=== PATIENT | female | born 1985 | race American Indian/Alaskan Native ===

== ENCOUNTER 2016-12-26 23:22 | Emergency (ER) | payer OTHER ==
[2016-12-26 23:25] VITALS: BMI 32.3
[2016-12-26 23:33] VITALS: RESP 18; TEMP 97.7
[2016-12-26] MEDS ORDERED: DiphenhydrAMINE 50 mg/ml Inj IVP STA (23:35)
--- NOTE | 2016-12-27 01:42 | ED PDOC ---
Arrival/HPI - General Historian: Patient - History of Present Illness Time/Duration: 1 hour Symptom Onset: Sudden Symptom Course: Improving Quality: Unable to Describe Severity Level: 1 Activities at Onset: Rest - General Chief Complaint: Shortness Of Breath Time Seen by Provider: 12/26/16 23:28 - History of Present Illness Narrative History of Present Illness (Text): 12/27/16 01:49 31-year-old female presents today with a feeling of shortness of breath that started about one hour prior to arrival. Patient states she just started a new blood pressure medication today around 5 PM and suddenly started to develop difficulty breathing. Patient states she doesn't feel short of breath she just feels like it's harder to breathe than usual. She denies wheezing. Denies chest pain. No vomiting or diarrhea. Denies headache dizziness or weakness. Patient denies rash. She denies new soaps lotions or detergents or perfumes. patient states the only thing new is the losartan. Patient states even now at the hospital she is already feeling better. She states she has a history of anxiety but denies any recent stressors. The patient denies recent travel. She denies smoking history. She denies calf tenderness. She denies control usage. ( Fanny Ghosh) Past Medical History - Provider Review Nursing Documentation Reviewed: Yes - Travel History Have you recently traveled outside [place] w/in the past 3 mons?: No - Cardiac Hx Hypertension: Yes - Psychiatric Hx Substance Use: No Family/Social History - Physician Review Nursing Documentation Reviewed: Yes Family/Social History: Unknown Family HX Smoking Status: no Hx Alcohol Use: No Hx Substance Use: No Allergies/Home Meds Allergies/Adverse Reactions: Allergies No Known Allergies Allergy (Verified 12/26/16 23:25) Home Medications: Home Meds Medication Instructions Recorded Confirmed Losartan [Cozaar] 25 mg PO DAILY 12/26/16 12/26/16 Review of Systems - Review of Systems Constitutional: absent: Fatigue, Fevers Respiratory: SOB. absent: Cough, Sputum, Wheezing Cardiovascular: absent: Chest Pain, Palpitations Gastrointestinal: absent: Abdominal Pain, Nausea, Vomiting Genitourinary Female: absent: Dysuria, Frequency, Hematuria Musculoskeletal: absent: Arthralgias, Back Pain, Neck Pain Skin: absent: Rash, Pruritis Neurological: absent: Headache, Dizziness Physical Exam Vital Signs Reviewed: Yes Temperature: Afebrile Blood Pressure: Normal Pulse: Regular Respiratory Rate: Normal Appearance: Positive for: Well-Appearing, Non-Toxic, Comfortable Pain Distress: None Mental Status: Positive for: Alert and Oriented X 3 - Systems Exam Head: Present: Atraumatic Mouth: Present: Moist Mucous Membranes Pharnyx: Present: Normal. No: ERYTHEMA, EXUDATE Nose (Internal): Present: Normal Inspection Neck: Present: Normal Range of Motion Respiratory/Chest: Present: Clear to Auscultation, Good Air Exchange. No: Respiratory Distress, Accessory Muscle Use, Wheezes, Decreased Breath Sounds, Retracting, Rhonchi, Tachypneic Cardiovascular: Present: Regular Rate and Rhythm, Normal S1, S2. No: Murmurs Abdomen: No: Tenderness Lower Extremity: No: Edema, CALF TENDERNESS Skin: Present: Warm, Dry, Normal Color. No: Rashes Psychiatric: Present: Alert, Oriented x 3 Medical Decision Making ED Course and Treatment: 12/27/16 01:53 Patient is nontoxic well-appearing in no distress with stable vital signs no angioedema. Lungs are clear to auscultation bilaterally there is no wheezing noted. The airway is patent Benadryl 50 mg IV Solu-Medrol 125 mg IV Pepcid 20 mg IV EKG shows normal sinus rhythm with sinus arrhythmia at 86 bpm normal axis normal intervals no ST elevations Patient feeling better even prior to medications. Patient reassessment: After medications patient is feeling much better. Patient states symptoms have completely resolved. the lungs are clear to auscultation bilaterally the airway is patent the patient is speaking in full sentences. I advised taking Benadryl every 6 hours as needed for itch as well as prednisone daily x4 days. Advised patient to follow up with primary care physician within the next 2 days and return if symptoms worsen persist or if new symptoms develop. I have advised the patient to stop taking the losartan at this point. I stressed the importance of follow-up with a primary care physician as the patient will still need to take a blood pressure medication. Patient verbalizes understanding of discharge instructions and need for immediate followup. all aspects of this case were discussed the attending of record. Impression :Allergic reaction Benadryl every 6 hours as needed for itch Prednisone once daily x4 days Pepcid one tablet daily Follow up with the primary care physician tomorrow Discontinue the use of your losartan Return if symptoms worsen persist or if new symptoms develop: Shortness of breath, feeling of throat closing, difficulty speaking or any other concerning symptoms develop (Fanny Ghosh) - Medication Orders Current Medication Orders: Discontinued Medications Diphenhydramine HCl (Benadryl) 50 mg IVP STAT STA Stop: 12/26/16 23:36 Last Admin: 12/27/16 00:51 Dose: 50 mg Famotidine (Pepcid) 20 mg IVP STAT STA Stop: 12/26/16 23:36 Last Admin: 12/27/16 00:51 Dose: 20 mg Methylprednisolone (Solu-Medrol) 125 mg IVP STAT STA Stop: 12/26/16 23:36 Last Admin: 12/27/16 00:51 Dose: 125 mg Disposition/Present on Arrival - Present on Arrival Any Indicators Present on Arrival: No History of DVT/PE: No History of Uncontrolled Diabetes: No Urinary Catheter: No History of Decub. Ulcer: No History Surgical Site Infection Following: None - Disposition Have Diagnosis and Disposition been Completed?: Yes Disposition Time: :44 Patient Plan: Discharge - Disposition Diagnosis: Allergic reaction Disposition: HOME/ ROUTINE Condition: GOOD Discharge Instructions (ExitCare): General Allergic Reaction (ED) Additional Instructions: Benadryl every 6 hours as needed for itch Prednisone once daily x4 days Pepcid one tablet daily Follow up with the primary care physician tomorrow Discontinue the use of your new blood pressure medication due to the possibility of allergic reaction to this medication. Return if symptoms worsen persist or if new symptoms develop: Shortness of breath, feeling of throat closing, difficulty speaking or any other concerning symptoms develop Prescriptions: DiphenhydrAMINE [Benadryl] 25 mg PO Q6H #20 cap Famotidine [Pepcid] 20 mg PO DAILY #30 tab predniSONE [predniSONE Tab] 3 tab PO DAILY #12 tab Referrals: Jacobo Venegas MD [Staff Provider] - Follow up with primary Sly Tillman MD [Staff Provider] - Follow up with primary Forms: WORK NOTE
[2016-12-27 01:49] VITALS: BP 124/74; PULSE 89; O2SAT 98
--- NOTE | 2016-12-27 11:18 | CARD ---
APPROVED REPORT EKG Measurement Heart [id number] <Conclusion> Normal sinus rhythm with sinus arrhythmia Normal ECG
== END 2016-12-27 01:48 | disposition home or self-care (01) ==
LOC: ED 23:22
DX: T78.49XA Other allergy, initial encounter (principal); X58.XXXA Exposure to other specified factors, initial encounter; I10 Essential (primary) hypertension
CPT/HCPCS: 93005; 96374; 96375; 99283; J1200; J2930

== ENCOUNTER 2017-02-09 03:04 | Emergency (ER) | payer OTHER ==
[2017-02-09 03:23] VITALS: BMI 35.7
[2017-02-09 03:25] VITALS: TEMP 99.4; O2SAT 100
--- NOTE | 2017-02-09 03:41 | ED PDOC ---
Arrival/HPI - General Chief Complaint: Chest Pain Time Seen by Provider: 02/09/17 03:27 Historian: Patient - History of Present Illness Narrative History of Present Illness (Text): 02/09/17 03:40 Nikki Mendiola is a 31 year old female, whose past medical history includes hypertension, who presents to the Emergency department complaining of chest pain. Patient states she has been experiencing left-sided chest discomfort described as a burning/gassy sensation since yesterday after drinking coffee. Patient states she was seen at an Urgent Care yesterday for similar complaint and given Omeprazole for acid reflux. Patient denies any fever , chills, shortness of breath, nausea, vomiting, diarrhea, urinary symptoms, back pain, neck pain, headache, dizziness, or any other complaints. Time/Duration: Other (yesterday) Symptom Onset: Gradual Symptom Course: Unchanged Activities at Onset: Rest, Light Context: Home Past Medical History - Provider Review Nursing Documentation Reviewed: Yes - Infectious Disease Hx of Infectious Diseases: None - Cardiac Hx Hypertension: Yes - Psychiatric Hx Substance Use: No - Anesthesia Hx Anesthesia: No Family/Social History - Physician Review Nursing Documentation Reviewed: Yes Family/Social History: No Known Family HX Smoking Status: Never Smoked Hx Alcohol Use: No Hx Substance Use: No Allergies/Home Meds Allergies/Adverse Reactions: Allergies No Known Allergies Allergy (Verified 12/26/16 23:25) Home Medications: Home Meds Medication Instructions Recorded Confirmed Losartan [Cozaar] 25 mg PO DAILY 12/26/16 12/26/16 Review of Systems - Physician Review All systems were reviewed & negative as marked: Yes - Review of Systems Constitutional: Normal. absent: Fevers Eyes: Normal ENT: Normal Respiratory: Normal. absent: SOB, Cough Cardiovascular: Chest Pain Gastrointestinal: Normal. absent: Abdominal Pain, Diarrhea, Nausea, Vomiting Genitourinary Female: Normal. absent: Dysuria, Frequency, Hematuria, Urine Output Changes Musculoskeletal: Normal. absent: Back Pain, Neck Pain Skin: Normal. absent: Rash Neurological: Normal. absent: Headache, Dizziness Endocrine: Normal Hemo/Lymphatic: Normal Psychiatric: Normal Physical Exam Vital Signs Reviewed: Yes Vital Signs Temp Pulse Resp BP Pulse Ox 02/09/17 03:25 99.4 F 96 H 18 153/80 H 100 Temperature: Afebrile Blood Pressure: Normal Pulse: Regular Respiratory Rate: Normal Appearance: Positive for: Well-Appearing, Non-Toxic, Comfortable Pain Distress: None Mental Status: Positive for: Alert and Oriented X 3 - Systems Exam Head: Present: Atraumatic, Normocephalic Pupils: Present: PERRL Extroacular Muscles: Present: EOMI Conjunctiva: Present: Normal Mouth: Present: Moist Mucous Membranes Neck: Present: Normal Range of Motion Respiratory/Chest: Present: Clear to Auscultation, Good Air Exchange. No: Respiratory Distress, Accessory Muscle Use Cardiovascular: Present: Regular Rate and Rhythm, Normal S1, S2. No: Murmurs Abdomen: Present: Normal Bowel Sounds. No: Tenderness, Distention, Peritoneal Signs Back: Present: Normal Inspection Upper Extremity: Present: Normal Inspection. No: Cyanosis, Edema Lower Extremity: Present: Normal Inspection. No: Edema Neurological: Present: GCS=15, CN II-XII Intact, Speech Normal Skin: Present: Warm, Dry, Normal Color. No: Rashes Psychiatric: Present: Alert, Oriented x 3, Normal Insight, Normal Concentration Medical Decision Making ED Course and Treatment: 02/09/17 03:41 Impression: 31 year old female complaining of burning left-sided chest discomfort. Differential Diagnosis include but are not limited to: Plan: -- EKG -- Labs, cardiac enzymes -- Urinalysis -- Carafate -- Protonix -- Reassess and disposition Progress Notes: Reviewed EKG, NSR at [address]-segment elevations or depressions, no T- wave inversions, normal intervals. Re-evaluation Time: 06:03 Reassessment Condition: Re-examined, Improved - Lab Interpretations Lab Results: 02/09/17 03:30 02/09/17 03:30 Lab Results 02/09/17 03:39: Urine Color Yellow, Urine Appearance Sl cloudy, Urine pH 6.0, Ur Specific [place] 1.010, Urine Protein Trace H, Urine Glucose (UA) Negative, Urine Ketones Negative, Urine Blood Large H, Urine Nitrate Negative, Urine Bilirubin Negative, Urine Urobilinogen 0.2, Ur Leukocyte Esterase Negative, Urine RBC 1 - 3, Urine WBC 1 - 3, Ur Epithelial Cells 3 - 4, Amorphous Sediment Small, Urine Bacteria Small, Urine HCG, Qual Negative 02/09/17 03:30: Sodium 135, Potassium 3.3 L, Chloride 100, Carbon Dioxide 26, Anion Gap 12, BUN 5 L, Creatinine 0.7, Est GFR ( Amer) > 60, Est GFR (Non -Af Amer) > 60, Random Glucose 106, Calcium 9.7, Magnesium 1.8, Total Bilirubin 0.6, AST 14 L, ALT 28, Alkaline Phosphatase 51, Lactate Dehydrogenase 356, Total Creatine Kinase 63, Troponin I < 0.01, Total Protein 7.6, Albumin 4.1, Globulin 3.4, Albumin/Globulin Ratio 1.2 02/09/17 03:30: WBC 4.7, RBC 4.31, Hgb 12.3, Hct 37.4, MCV 86.8, MCH 28.5, MCHC 32.9, RDW 13.3, Plt Count 208, MPV 12.3 H, Gran % 47.7 L, Lymph % (Auto) 40.8 H , [place] % (Auto) 10.0 H, Eos % (Auto) 1.5, Baso % (Auto) 0.0, Gran # 2.23, Lymph # 1.9, [place] # 0.5, Eos # 0.1, Baso # 0.00 I have reviewed the lab results: Yes - EKG Interpretation Interpreted by ED Physician: Yes Type: 12 lead EKG - Medication Orders Current Medication Orders: Discontinued Medications Ketorolac Tromethamine (Toradol) 30 mg IVP ONCE ONE Stop: 02/09/17 05:14 Last Admin: 02/09/17 05:24 Dose: 30 mg Pantoprazole Sodium (Protonix Inj) 40 mg IVP ONCE STA Stop: 02/09/17 03:45 Last Admin: 02/09/17 04:02 Dose: 40 mg Sucralfate (Carafate Oral Susp) 1 gm PO STAT STA Stop: 02/09/17 03:45 Last Admin: 02/09/17 04:02 Dose: 1 gm - Scribe Statement The provider has reviewed the documentation as recorded by the Goldyibleida Chavira All medical record entries made by the Goldyibleida were at my direction and personally dictated by me. I have reviewed the chart and agree that the record accurately reflects my personal performance of the history, physical exam, medical decision making, and the department course for this patient. I have also personally directed, reviewed, and agree with the discharge instructions and disposition. Disposition/Present on Arrival - Present on Arrival Any Indicators Present on Arrival: No History of DVT/PE: No History of Uncontrolled Diabetes: No Urinary Catheter: No History of Decub. Ulcer: No History Surgical Site Infection Following: None - Disposition Have Diagnosis and Disposition been Completed?: Yes Diagnosis: Gastro-esophageal reflux Disposition: HOME/ ROUTINE Disposition Time: 06:04 Condition: GOOD Discharge Instructions (ExitCare): Gastroesophageal Reflux Disease (ED) Prescriptions: Sucralfate [Carafate] 1 gm PO QID #24 tab
[2017-02-09] MEDS ORDERED: Sucralfate 1 gm/10 ml Oral Susp UD PO STA (03:44)
[2017-02-09 03:49] LABS: ADD MANUAL DIFF? NO
[2017-02-09 03:59] LABS: EOS # 0.1 (0.0-0.7); EOS % 1.5 % (1.5-5.0); GRAN # 2.23 (1.4-6.5); GRAN % 47.7 % (50.0-68.0); HEMATOCRIT 37.4 % (36.0-48.0); LYMPH # 1.9 (1.2-3.4); LYMPH % 40.8 % (22.0-35.0); MEAN CELL VOLUME 86.8 fL (80.0-105.0); MEAN CORPUSCULAR HEMOGLOBIN 28.5 pg (25.0-35.0); MEAN CORPUSCULAR HGB CONC 32.9 g/dl (31.0-37.0); MEAN PLATELET VOLUME 12.3 fl (7.0-11.0); MONO # 0.5 (0.1-0.6); PLATELET COUNT 208 10^3/uL (120.0-450.0); RED CELL DISTRIBUTION WIDTH 13.3 % (11.5-14.5); WHITE BLOOD COUNT 4.7 10^3/ul (4.5-11.0)
[2017-02-09 04:01] LABS: URINE BILIRUBIN NEGATIVE (NEGATIVE); URINE BLOOD LARGE (NEGATIVE); URINE GLUCOSE (UA) NEGATIVE (NEGATIVE); URINE KETONE NEGATIVE (NEGATIVE); URINE LEUKOCYTE ESTERASE NEGATIVE Leu/uL (NEGATIVE); URINE PROTEIN TRACE mg/dL (<30 mg/dL); URINE UROBILINOGEN 0.2 E.U./dL (<1 E.U./dL)
[2017-02-09 04:02] LABS: URINE APPEARANCE SL CLOUDY (CLEAR); URINE COLOR YELLOW (YELLOW)
[2017-02-09 04:14] LABS: ALB/GLOB RATIO 1.2 (1.1-1.8); ALKALINE PHOSPHATASE 51 U/L (38-133); ALT/SGPT 28 U/L (7-56); AST/SGOT 14 U/L (15-39); BILIRUBIN,TOTAL 0.6 mg/dL (0.2-1.3); BLOOD UREA NITROGEN 5 mg/dL (7-21); CALCIUM 9.7 mg/dL (8.4-10.5); CARBON DIOXIDE 26 mmol/L (21-33); CHLORIDE 100 mmol/L (98-107); GFR AFRICAN-AMERICAN > 60; GLUCOSE,RANDOM 106 mg/dL (70-110); MAGNESIUM 1.8 mg/dL (1.7-2.2); POTASSIUM 3.3 mmol/L (3.6-5.0); SODIUM 135 mmol/L (132-148); TOTAL PROTEIN 7.6 g/dL (5.8-8.3)
[2017-02-09 04:37] LABS: URINE AMORPHOUS SEDIMENT SMALL; URINE BACTERIA SMALL (NEG)
[2017-02-09 04:54] LABS: TROPONIN I < 0.01 ng/mL
[2017-02-09 06:20] VITALS: BP 145/57; PULSE 68; RESP 16
--- NOTE | 2017-02-09 10:52 | CARD ---
APPROVED REPORT EKG Measurement Heart [id number] <Conclusion> Normal sinus rhythm NSSTW changes Prolonged QTc No change
== END 2017-02-09 06:21 | disposition home or self-care (01) ==
LOC: ED 03:04
DX: K21.9 Gastro-esophageal reflux disease without esophagitis (principal); I10 Essential (primary) hypertension
CPT/HCPCS: 80053; 81001; 82550; 83615; 83735; 84484; 84703; 85025; 93005; 96374; 96375; 99285; C9113; J1885

== ENCOUNTER 2017-02-14 00:42 | Emergency (ER) | payer OTHER ==
[2017-02-14 00:43] VITALS: BMI 35.7
--- NOTE | 2017-02-14 00:50 | ED PDOC ---
Arrival/HPI - History of Present Illness Time/Duration: 1/2 hour Symptom Onset: Sudden Symptom Course: Unchanged Severity Level: Mild Activities at Onset: Light Context: Home <Stuart Jansen - Last Filed: 02/14/17 02:24> - General Historian: Patient <Ricky Norwood - Last Filed: 02/14/17 02:39> - General Chief Complaint: Shortness Of Breath Time Seen by Provider: 02/14/17 00:44 - History of Present Illness Narrative History of Present Illness (Text): 02/14/17 00:48 This is a 31 yo F with PMH of HTN that presents with SOB that she states started 30 min prior to arrival. She states that she has a substernal tightness that is similar to her last ER visit where she was treated for her acid reflux. She was lying down in bed when her symptoms began. She denies any cough, post- nasal drip, chest pain, palpitations, nausea, vomiting. Does admit to some head fullness as well. (Ricky Norwood) Past Medical History - Provider Review Nursing Documentation Reviewed: Yes - Infectious Disease Hx of Infectious Diseases: None - Cardiac Hx Hypertension: Yes - Psychiatric Hx Substance Use: No - Anesthesia Hx Anesthesia: No <CucoShanaRicky - Last Filed: 02/14/17 02:39> Family/Social History - Physician Review Nursing Documentation Reviewed: Yes Family/Social History: No Known Family HX Smoking Status: Never Smoked Hx Alcohol Use: No Hx Substance Use: No <CucoShanaRicky - Last Filed: 02/14/17 02:39> Allergies/Home Meds <Stuart Jansen - Last Filed: 02/14/17 02:24> <Ricky Norwood - Last Filed: 02/14/17 02:39> Allergies/Adverse Reactions: Allergies No Known Allergies Allergy (Verified 12/26/16 23:25) Home Medications: Home Meds Medication Instructions Recorded Confirmed No Known Home Med 02/14/17 02/14/17 Review of Systems - Physician Review All systems were reviewed & negative as marked: Yes - Review of Systems Constitutional: Normal. absent: Fatigue, Fevers Eyes: Normal. absent: Vision Changes, Eye Pain ENT: Normal Respiratory: SOB. absent: Cough Cardiovascular: Normal. absent: Chest Pain, Palpitations Gastrointestinal: Normal. absent: Abdominal Pain, Nausea, Vomiting Genitourinary Female: Normal. absent: Dysuria, Frequency Musculoskeletal: Normal Skin: Normal. absent: Rash, Pruritis Neurological: Normal. absent: Headache, Dizziness Endocrine: Normal Hemo/Lymphatic: Normal Psychiatric: Normal <Ricky Norwood - Last Filed: 02/14/17 02:39> Physical Exam Vital Signs Reviewed: Yes Temperature: Afebrile Blood Pressure: Normal Pulse: Regular Respiratory Rate: Normal Appearance: Positive for: Well-Appearing, Non-Toxic, Comfortable Pain Distress: None Mental Status: Positive for: Alert and Oriented X 3 - Systems Exam Head: Present: Atraumatic, Normocephalic Pupils: Present: PERRL Mouth: Present: Moist Mucous Membranes Respiratory/Chest: Present: Clear to Auscultation, Good Air Exchange. No: Respiratory Distress, Accessory Muscle Use, Wheezes, Rhonchi Cardiovascular: Present: Regular Rate and Rhythm, Normal S1, S2 Abdomen: Present: Normal Bowel Sounds. No: Tenderness, Distention Upper Extremity: Present: NORMAL PULSES, Neurovascularly Intact Lower Extremity: Present: NORMAL PULSES, Neurovascularly Intact Neurological: Present: Speech Normal, Motor Func Grossly Intact Skin: Present: Warm, Dry Psychiatric: Present: Alert, Oriented x 3 <Ricky Norwood - Last Filed: 02/14/17 02:39> Vital Signs Temp Pulse Resp BP Pulse Ox 02/14/17 01:22 18 98 02/14/17 00:46 98.1 F 63 19 144/76 100 Medical Decision Making <Stuart Jansen - Last Filed: 02/14/17 02:24> <Ricky Norwood - Last Filed: 02/14/17 02:39> ED Course and Treatment: 02/14/17 02:25 Patient seen and evaluated with resident. Agree with HPI, clinical findings, plan and treatment. Patient is a 31 Year old female who presents to the Emergency department complaining of 30 minute duration of SOB. Also complains of substernal chest tightness. (Stuart Jansen) 02/14/17 00:49 This is a 31 yo F who complains of sob, speaking in full sentences, in no respiratory distress Plan: - Labs including d dimer - EKG, CXR - Protonix - Reassess and disposition 02/14/17 01:51 EKG - NSR at 64 bpm, no st changes, normal intervals, normal axis CXR - no obvious infiltrates or pleural effusions. No cardiomegaly 02/14/17 02:01 K at 2.9, likely due to HCTZ use, will replete 02/14/17 02:35 Pt states she feels improved with the protonix. Will discharge home with instructions to keep her appointment with PMD next week. (Ricky Norwood) - Lab Interpretations Lab Results: 02/14/17 01:15 02/14/17 01:15 Lab Results 02/14/17 01:15: Sodium 137, Potassium 2.9 L*, Chloride 101, Carbon Dioxide 27, Anion Gap 12, BUN 3 L, Creatinine 0.7, Est GFR ( Amer) > 60, Est GFR (Non -Af Amer) > 60, Random Glucose 100, Calcium 9.2, Total Bilirubin 0.5, AST 18, ALT 28, Alkaline Phosphatase 51, Lactate Dehydrogenase 358, Total Creatine Kinase 347 H, CK-MB (CK-2) < 0.2, CK-MB (CK-2) % Cancelled, Troponin I < 0.01, Total Protein 7.7, Albumin 4.0, Globulin 3.7, Albumin/Globulin Ratio 1.1 02/14/17 01:15: D-Dimer, Quantitative 0.21 02/14/17 01:15: WBC 3.7 L D, RBC 4.23, Hgb 12.2, Hct 37.0, MCV 87.5, MCH 28.8, MCHC 33.0, RDW 13.4, Plt Count 214, MPV 12.1 H, Gran % 44.7 L, Lymph % (Auto) 44.7 H, [place] % (Auto) 8.7 H, Eos % (Auto) 1.6, Baso % (Auto) 0.3, Gran # 1.64, Lymph # 1.6, [place] # 0.3, Eos # 0.1, Baso # 0.01 - RAD Interpretation Radiology Orders: 02/14/17 00:58 CHEST PORTABLE [RAD] Stat - Medication Orders Current Medication Orders: Discontinued Medications Pantoprazole Sodium (Protonix Inj) 40 mg IVP STAT STA Stop: 02/14/17 00:59 Last Admin: 02/14/17 01:25 Dose: 40 mg Potassium Chloride (K-Dur 20 Meq Er Tab) 40 meq PO STAT STA Stop: 02/14/17 02:01 - PA / MANAGER GROCERY / Resident Statement MD/ has reviewed & agrees with the documentation as recorded. MD/ has examined the patient and agrees with the treatment plan. <Stuart Jansen - Last Filed: 02/14/17 02:24> <Ricky Norwood - Last Filed: 02/14/17 02:39> - Scribe Statement Jing Segal Provider Scribe Attestation: All medical record entries made by the Scribe were at my direction and personally dictated by me. I have reviewed the chart and agree that the record accurately reflects my personal performance of the history, physical exam, medical decision making, and the department course for this patient. I have also personally directed, reviewed, and agree with the discharge instructions and disposition. (Stuart Jansen) Disposition/Present on Arrival <InderjitStuart - Last Filed: 02/14/17 02:24> - Present on Arrival Any Indicators Present on Arrival: No History of DVT/PE: No History of Uncontrolled Diabetes: No Urinary Catheter: No History Surgical Site Infection Following: None - Disposition Have Diagnosis and Disposition been Completed?: Yes Disposition Time: 02:37 Patient Plan: Discharge <CucoShanaRicky - Last Filed: 02/14/17 02:39> - Disposition Diagnosis: Hypokalemia, Shortness of breath Disposition: HOME/ ROUTINE Condition: IMPROVED Discharge Instructions (ExitCare): Gastroesophageal Reflux Disease (ED) Additional Instructions: You were evaluated for shortness of breath. Continue to take home medications as prescribed. Follow up/keep appointment with primary care doctor. Please return to ED with any new or worsening symptoms. Referrals: Janey Salcedo, [Primary Care Provider] - Follow up with primary
[2017-02-14 00:54] VITALS: TEMP 98.1
[2017-02-14 01:25] VITALS: RESP 18
[2017-02-14 01:28] LABS: ADD MANUAL DIFF? NO
[2017-02-14 01:33] LABS: BASO # 0.01 K/mm3 (0.0-2.0); BASO % 0.3 % (0.0-3.0); EOS # 0.1 (0.0-0.7); EOS % 1.6 % (1.5-5.0); GRAN # 1.64 (1.4-6.5); GRAN % 44.7 % (50.0-68.0); LYMPH # 1.6 (1.2-3.4); LYMPH % 44.7 % (22.0-35.0); MEAN CELL VOLUME 87.5 fL (80.0-105.0); MEAN CORPUSCULAR HEMOGLOBIN 28.8 pg (25.0-35.0); MEAN PLATELET VOLUME 12.1 fl (7.0-11.0); MONO # 0.3 (0.1-0.6); MONO % 8.7 % (1.0-6.0); PLATELET COUNT 214 10^3/uL (120.0-450.0); RED CELL DISTRIBUTION WIDTH 13.4 % (11.5-14.5); WHITE BLOOD COUNT 3.7 10^3/ul (4.5-11.0)
[2017-02-14 01:54] LABS: ALB/GLOB RATIO 1.1 (1.1-1.8); ALKALINE PHOSPHATASE 51 U/L (38-133); ALT/SGPT 28 U/L (7-56); AST/SGOT 18 U/L (15-39); BILIRUBIN,TOTAL 0.5 mg/dL (0.2-1.3); BLOOD UREA NITROGEN 3 mg/dL (7-21); CALCIUM 9.2 mg/dL (8.4-10.5); CARBON DIOXIDE 27 mmol/L (21-33); CHLORIDE 101 mmol/L (98-107); GFR AFRICAN-AMERICAN > 60; GLUCOSE,RANDOM 100 mg/dL (70-110); SODIUM 137 mmol/L (132-148); TOTAL PROTEIN 7.7 g/dL (5.8-8.3)
[2017-02-14 01:58] LABS: POTASSIUM 2.9 mmol/L (3.6-5.0)
[2017-02-14] MEDS ORDERED: Potassium Chloride 20 mEq ER Tab PO STA (02:00)
[2017-02-14 02:07] LABS: TROPONIN I < 0.01 ng/mL
[2017-02-14 02:50] VITALS: BP 129/67; PULSE 62; O2SAT 100
--- NOTE | 2017-02-14 08:43 | RAD ---
HISTORY: sob COMPARISON: No prior. FINDINGS: LUNGS: No active pulmonary disease. PLEURA: No significant pleural effusion identified, no pneumothorax apparent. CARDIOVASCULAR: Normal. OSSEOUS STRUCTURES: No significant abnormalities. VISUALIZED UPPER ABDOMEN: Normal. OTHER FINDINGS: None. IMPRESSION: No active disease.
--- NOTE | 2017-02-14 22:37 | CARD ---
APPROVED REPORT EKG Measurement Heart [id number] <Conclusion> Normal sinus rhythm with sinus arrhythmia Normal ECG
== END 2017-02-14 02:51 | disposition home or self-care (01) ==
LOC: ED 00:42
DX: R06.02 Shortness of breath (principal); E87.6 Hypokalemia; I10 Essential (primary) hypertension
CPT/HCPCS: 71010; 80053; 82550; 82553; 83615; 84484; 85025; 85378; 93005; 96374; 99284; C9113

== ENCOUNTER 2017-02-18 02:12 | Emergency (ER) | payer OTHER ==
[2017-02-18 02:17] VITALS: BMI 34.6
[2017-02-18 02:19] VITALS: BP 133/79; PULSE 79; RESP 15; TEMP 98.2; O2SAT 100
[2017-02-18] MEDS ORDERED: Alum-Mag Hydrox-Simethicone Susp (30 mL) PO STA (03:20)
--- NOTE | 2017-02-18 03:57 | ED PDOC ---
Arrival/HPI - General Chief Complaint: Abdominal Pain Time Seen by Provider: 02/18/17 03:10 Historian: Patient - History of Present Illness Narrative History of Present Illness (Text): 02/18/17 04:57 A 31 year old female presents to the emergency department complaining of chest pain that developed earlier today. Patient notes a burning sensation of food getting stuck after eating solid foods. 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 Patient has been to the emergency department 2 times in the past month for the same symptoms. Denies any other complaints at this time. Symptom Onset: Sudden Symptom Course: Unchanged Activities at Onset: Rest Modifying Factors (Text): none Context: Home Past Medical History - Provider Review Nursing Documentation Reviewed: Yes - Infectious Disease Hx of Infectious Diseases: None - Cardiac Hx Hypertension: Yes - Pulmonary Hx Respiratory Disorders: No - Neurological Hx Neurological Disorder: No - HEENT Hx HEENT Disorder: No - Renal Hx Renal Disorder: No - Endocrine/Metabolic Hx Endocrine Disorders: No - Hematological/Oncological Hx Blood Disorders: No - Integumentary Hx Dermatological Disorder: No - Musculoskeletal/Rheumatological Hx Musculoskeletal Disorders: No - Genitourinary/Gynecological Hx Genitourinary Disorders: No - Psychiatric Hx Psychophysiologic Disorder: No Hx Substance Use: No - Anesthesia Hx Anesthesia: No Family/Social History - Physician Review Nursing Documentation Reviewed: Yes Family/Social History: No Known Family HX Smoking Status: Never Smoked Hx Alcohol Use: No Hx Substance Use: No Allergies/Home Meds Allergies/Adverse Reactions: Allergies No Known Allergies Allergy (Verified 02/18/17 02:17) Home Medications: Home Meds Medication Instructions Recorded Confirmed Omeprazole [Omeprazole] 40 mg PO DAILY 02/18/17 02/18/17 Review of Systems - Physician Review All systems were reviewed & negative as marked: Yes - Review of Systems Constitutional: absent: Fevers Respiratory: absent: SOB Cardiovascular: Chest Pain Neurological: absent: Headache Physical Exam Vital Signs Reviewed: Yes Vital Signs Temp Pulse Resp BP Pulse Ox 02/18/17 02:18 98.2 F 79 15 133/79 100 Temperature: Afebrile Blood Pressure: Normal Pulse: Regular Respiratory Rate: Normal Appearance: Positive for: Well-Appearing, Non-Toxic, Comfortable Pain Distress: None Mental Status: Positive for: Alert and Oriented X 3 - Systems Exam Head: Present: Atraumatic, Normocephalic Pupils: Present: PERRL Extroacular Muscles: Present: EOMI Conjunctiva: Present: Normal Mouth: Present: Moist Mucous Membranes Neck: Present: Normal Range of Motion Respiratory/Chest: Present: Clear to Auscultation, Good Air Exchange. No: Respiratory Distress, Accessory Muscle Use Cardiovascular: Present: Regular Rate and Rhythm, Normal S1, S2. No: Murmurs Abdomen: Present: Normal Bowel Sounds. No: Tenderness, Distention, Peritoneal Signs Back: Present: Normal Inspection Upper Extremity: Present: Normal Inspection. No: Cyanosis, Edema Lower Extremity: Present: Normal Inspection. No: Edema Neurological: Present: GCS=15, CN II-XII Intact, Speech Normal Skin: Present: Warm, Dry, Normal Color. No: Rashes Psychiatric: Present: Alert, Oriented x 3, Normal Insight, Normal Concentration Medical Decision Making ED Course and Treatment: 02/18/17 03:57 Patient feels better after treatment. I have discussed the results and plan with the patient, who expresses understanding. Patient in agreement with plan to be discharged home. Patient is stable for discharge. Patient was instructed to follow up with high school social science teacher or return if symptoms worsen or new concerning symptoms arise. - Medication Orders Current Medication Orders: Discontinued Medications Al Hydrox/Mg Hydrox/Simethicone (Maalox Plus 30 Ml) 30 ml PO STAT STA Stop: 02/18/17 03:21 Last Admin: 02/18/17 03:42 Dose: 30 ml Lidocaine HCl (Lidocaine 2% Viscous) 15 ml PO STAT STA Stop: 02/18/17 03:21 Last Admin: 02/18/17 03:43 Dose: 15 ml - Scribe Statement The provider has reviewed the documentation as recorded by the Noris Vale Provider Scribe Attestation: All medical record entries made by the Goldyibleida were at my direction and personally dictated by me. I have reviewed the chart and agree that the record accurately reflects my personal performance of the history, physical exam, medical decision making, and the department course for this patient. I have also personally directed, reviewed, and agree with the discharge instructions and disposition. Disposition/Present on Arrival - Present on Arrival History of DVT/PE: No History of Uncontrolled Diabetes: No Urinary Catheter: No History of Decub. Ulcer: No History Surgical Site Infection Following: None - Disposition Diagnosis: GERD (gastroesophageal reflux disease) Disposition: HOME/ ROUTINE Disposition Time: 03:57 Condition: IMPROVED Discharge Instructions (ExitCare): Diet for Ulcers and Gastritis (ED) Additional Instructions: Please follow up with your doctor. Return to the ER for any worsening symptoms or for any other concerns. Prescriptions: Lidocaine 2% Viscous 15 ml MM Q4H PRN #150 ml PRN Reason: Heartburn
== END 2017-02-18 04:03 | disposition home or self-care (01) ==
LOC: ED 02:12
DX: K21.9 Gastro-esophageal reflux disease without esophagitis (principal); I10 Essential (primary) hypertension

== ENCOUNTER 2017-05-02 13:36 | Emergency (ER) | payer OTHER ==
[2017-05-02 13:46] VITALS: BMI 30.7
[2017-05-02 13:50] VITALS: TEMP 98.8
--- NOTE | 2017-05-02 14:17 | ED PDOC ---
Arrival/HPI - General Chief Complaint: ENT Problem Time Seen by Provider: 05/02/17 13:54 Historian: Patient - History of Present Illness Narrative History of Present Illness (Text): 05/02/17 14:12 32-year-old female presents today with a 2 day history of cough and sore throat. Patient complaining of pain with swallowing. Patient states she did have one episode of vomiting this morning after she drank tea. Patient denies abdominal pain. Denies nausea at present time. Denies fevers or chills. 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 She denies dizziness or weakness. She denies any chest pain or shortness of breath at present time. Patient has not taken any medications for pain at home. No other complaints Time/Duration: Other (2 days) Symptom Onset: Gradual Symptom Course: Worsening Quality: Burning Severity Level: 2 Past Medical History - Provider Review Nursing Documentation Reviewed: Yes - Travel History Have you recently traveled outside [place] w/in the past 3 mons?: No - Infectious Disease Hx of Infectious Diseases: None - Tetanus Immunization Tetanus Immunization: Unknown - Cardiac Hx Cardiac Disorders: No - Pulmonary Hx Respiratory Disorders: No - Neurological Hx Neurological Disorder: No - HEENT Hx HEENT Disorder: No - Renal Hx Renal Disorder: No - Endocrine/Metabolic Hx Endocrine Disorders: No - Hematological/Oncological Hx Blood Disorders: No - Integumentary Hx Dermatological Disorder: No - Musculoskeletal/Rheumatological Hx Musculoskeletal Disorders: No - Genitourinary/Gynecological Hx Genitourinary Disorders: No - Psychiatric Hx Psychophysiologic Disorder: No Hx Substance Use: No - Anesthesia Hx Anesthesia: No Family/Social History - Physician Review Nursing Documentation Reviewed: Yes Family/Social History: Unknown Family HX Smoking Status: Never Smoked Hx Alcohol Use: No Hx Substance Use: No Allergies/Home Meds Allergies/Adverse Reactions: Allergies No Known Allergies Allergy (Verified 02/18/17 02:17) Review of Systems - Review of Systems Constitutional: absent: Fatigue, Fevers ENT: Sore Throat, Sinus Congestion Respiratory: Cough. absent: SOB, Wheezing Cardiovascular: absent: Chest Pain, Palpitations Gastrointestinal: Vomiting. absent: Abdominal Pain, Constipation, Diarrhea, Nausea Genitourinary Female: absent: Dysuria, Frequency, Hematuria Musculoskeletal: absent: Arthralgias, Back Pain, Neck Pain Skin: absent: Rash, Pruritis Neurological: absent: Headache, Dizziness Psychiatric: absent: Anxiety, Depression Physical Exam Vital Signs Reviewed: Yes Vital Signs Temp Pulse Resp BP Pulse Ox 05/02/17 13:50 19 05/02/17 13:49 98.8 F 94 H 18 141/79 99 Temperature: Afebrile Blood Pressure: Normal Pulse: Regular Respiratory Rate: Normal Appearance: Positive for: Well-Appearing, Non-Toxic, Comfortable Pain Distress: None Mental Status: Positive for: Alert and Oriented X 3 - Systems Exam Head: Present: Atraumatic Conjunctiva: Present: Normal Ears: Present: Normal, NORMAL TM Mouth: Present: Moist Mucous Membranes, Normal Lips, Normal Tounge, Normal Teeth. No: Drooling, Trismus Pharnyx: Present: ERYTHEMA, EXUDATE. No: Normal, TONSILS ENLARGED, Peritonsilar Swelling, Uvular Deviation, Muffled/Hoarse Voice, Soft Palate/ Uvular Edema Nose (External): Present: Atraumatic Nose (Internal): Present: Normal Inspection, Clear Mucous Neck: Present: Normal Range of Motion, Trachea Midline. No: Lymphadenopathy Respiratory/Chest: Present: Clear to Auscultation, Good Air Exchange. No: Respiratory Distress, Accessory Muscle Use Cardiovascular: Present: Regular Rate and Rhythm, Normal S1, S2. No: Murmurs Abdomen: No: Tenderness Neurological: Present: GCS=15 Skin: Present: Warm, Dry, Normal Color Psychiatric: Present: Alert, Oriented x 3 Medical Decision Making ED Course and Treatment: 05/02/17 14:15 Patient is nontoxic well appearing in no distress. Vital signs are stable. Lungs cta bilaterally. Tolerating p.o. fluids and solids decadron 10mg IM Motrin 600 mg p.o. amoxicillin PO I advised follow up with primary care physician within the next 2 days, advised to increase fluids take medications as prescribed and return if symptoms worsen persist or if new symptoms develop Patient verbalizes understanding of discharge instructions and need for immediate followup. IMPRESSION; pharyngitis, cough Motrin every 6 hours as needed for pain/fever reduction Increase fluids Amoxicillin 3 times daily x10 days Follow up primary care physician within the next 2 days Follow up with the ENT specialist within the next 2 days. Saltwater gargles, throat lozenges Return if symptoms worsen persist or if the symptoms develop Disposition/Present on Arrival - Present on Arrival Any Indicators Present on Arrival: No History of DVT/PE: No History of Uncontrolled Diabetes: No Urinary Catheter: No History of Decub. Ulcer: No History Surgical Site Infection Following: None - Disposition Have Diagnosis and Disposition been Completed?: Yes Diagnosis: Pharyngitis, Cough Disposition: HOME/ ROUTINE Disposition Time: 14:17 Patient Plan: Discharge Patient Problems: Current Active Problems Problem Status Onset Cough Acute Pharyngitis Acute Condition: GOOD Discharge Instructions (ExitCare): Pharyngitis (ED), Acute Cough (ED) Additional Instructions: Motrin every 6 hours as needed for pain/fever reduction Increase fluids Amoxicillin 3 times daily x10 days Follow up primary care physician within the next 2 days Follow up with the ENT specialist within the next 2 days. Saltwater gargles, throat lozenges Return if symptoms worsen persist or if the symptoms develop Prescriptions: Amoxicillin 500 mg PO TID #30 tab Ibuprofen [Motrin] 600 mg PO Q6H PRN #20 tab PRN Reason: pain/fever reduction Referrals: Sherwin Yu DO [Staff Provider] - Follow up with primary Stuart Hurley MD [Staff Provider] - Follow up with primary Forms: [employer] ([place])
[2017-05-02 15:16] VITALS: BP 135/80; PULSE 85; RESP 17; O2SAT 100
== END 2017-05-02 15:20 | disposition home or self-care (01) ==
LOC: ED 13:36
DX: J02.9 Acute pharyngitis, unspecified (principal); R05 Cough
CPT/HCPCS: 96372; 99285; J1100

== ENCOUNTER 2017-08-16 00:54 | Emergency (ER) | payer OTHER ==
[2017-08-16 00:54] VITALS: BMI 30.7
[2017-08-16 01:16] VITALS: BP 152/89; PULSE 100; RESP 19; TEMP 98.6; O2SAT 99
[2017-08-16] MEDS ORDERED: Amoxicillin-Clav 875-125 mg Tab PO STA (01:52)
[2017-08-16] MEDS ORDERED: TDAP Vaccine 0.5 mL Syr IM ONE (01:52)
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
--- NOTE | 2017-08-16 08:31 | RAD ---
PROCEDURE: Radiographs of the left tibia and fibula. HISTORY: Possible FB COMPARISON: None available. TECHNIQUE: Frontal and lateral views obtained. FINDINGS: BONES: No fracture or destructive lesion. JOINT SPACES: Unremarkable. OTHER FINDINGS: 5 cm caudal to the tibial plateau - a 2 x 6 mm radiopacity superficial dermis and or subcutaneous tissues noted. Clinical question is that of foreign body in this appearance is consistent with - correlate with foreign body level IMPRESSION: Anterior superficial dermis and/or superficial subcutaneous foreign body No osseous interruption
== END 2017-08-16 02:15 | disposition home or self-care (01) ==
LOC: ED 00:54
DX: S80.812A Abrasion, left lower leg, initial encounter (principal); S80.852A Superficial foreign body, left lower leg, initial encounter; X99.0XXA Assault by sharp glass, initial encounter; Z23 Encounter for immunization

== ENCOUNTER 2018-08-02 19:15 | Emergency (ER) | payer OTHER ==
--- NOTE | 2018-08-02 19:17 | ED PDOC ---
Arrival/HPI - General Historian: Patient - History of Present Illness Narrative History of Present Illness (Text): 08/02/18 19:16 33 y/o female, pmh including gerd, nkda, c/o concerning for UTI x 2 days. Pt. stated that she has to urinate when her bladder is full, concerning this might be UTI, no pelvic pain or hematuria. Pt. has no fever or chills, no vaginal bleeding or discharge, no abdominal pain, no night sweat, no rash, no numbness or tingling, no flank pain, no hematuria, no other medical or psychological complaints. Pt. stated that she feels perfectly fine now. Past Medical History - Provider Review Nursing Documentation Reviewed: Yes - Infectious Disease Hx of Infectious Diseases: None - Tetanus Immunization Tetanus Immunization: Unknown - Cardiac Hx Cardiac Disorders: No - Pulmonary Hx Respiratory Disorders: No - Neurological Hx Neurological Disorder: No - HEENT Hx HEENT Disorder: No - Renal Hx Renal Disorder: No - Endocrine/Metabolic Hx Endocrine Disorders: No - Hematological/Oncological Hx Blood Disorders: No - Integumentary Hx Dermatological Disorder: No - Musculoskeletal/Rheumatological Hx Musculoskeletal Disorders: No - Gastrointestinal Hx Gastrointestinal Disorders: No - Genitourinary/Gynecological Hx Genitourinary Disorders: No - Psychiatric Hx Psychophysiologic Disorder: No Hx Substance Use: No - Anesthesia Hx Anesthesia: No Family/Social History - Physician Review Nursing Documentation Reviewed: Yes Family/Social History: Unknown Family HX Smoking Status: Never Smoked Hx Alcohol Use: No Hx Substance Use: No Allergies/Home Meds Allergies/Adverse Reactions: Allergies No Known Allergies Allergy (Verified 08/16/17 01:17) Home Medications: Home Meds Medication Instructions Recorded Confirmed No Known Home Med 08/02/18 08/02/18 Review of Systems - Review of Systems Constitutional: absent: Fatigue, Fevers Eyes: absent: Vision Changes ENT: absent: Hearing Changes Respiratory: absent: SOB, Cough Cardiovascular: absent: Chest Pain Gastrointestinal: absent: Abdominal Pain, Diarrhea, Nausea, Vomiting Genitourinary Female: Frequency. absent: Dysuria Musculoskeletal: absent: Arthralgias, Back Pain Skin: absent: Rash, Pruritis Neurological: absent: Headache, Dizziness Psychiatric: absent: Anxiety, Depression, Suicidal Ideation Physical Exam Vital Signs Reviewed: Yes Temperature: Afebrile Blood Pressure: Normal Pulse: Regular Respiratory Rate: Normal Appearance: Positive for: Well-Appearing, Non-Toxic, Comfortable Pain Distress: None Mental Status: Positive for: Alert and Oriented X 3 - Systems Exam Head: Present: Atraumatic, Normocephalic Pupils: Present: PERRL Extroacular Muscles: Present: EOMI Conjunctiva: Present: Normal Mouth: Present: Moist Mucous Membranes Neck: Present: Normal Range of Motion Respiratory/Chest: Present: Clear to Auscultation, Good Air Exchange. No: Respiratory Distress, Accessory Muscle Use Cardiovascular: Present: Regular Rate and Rhythm, Normal S1, S2. No: Murmurs Abdomen: No: Tenderness, Distention, Peritoneal Signs, Rebound Genitourinary/Pelvic Exam: Present: Other (Pt. declined. ) Back: Present: Normal Inspection. No: CVA Tenderness, Midline Tenderness, Paraspinal Tenderness Upper Extremity: Present: Normal Inspection. No: Cyanosis, Edema Lower Extremity: Present: Normal Inspection. No: Edema Neurological: Present: GCS=15, CN II-XII Intact, Speech Normal Skin: Present: Warm, Dry, Normal Color. No: Rashes Psychiatric: Present: Alert, Oriented x 3, Normal Insight, Normal Concentration Medical Decision Making ED Course and Treatment: 08/02/18 19:23 -urine hcg -ua -observe and reassess 08/02/18 20:26 -Urine hcg is negative -UA show no UTI. -I offered labs/radiology study and she declined, request to be discharged home, stated that she feels well, will go see her own pmd -Discharge home with education on follow up with your own pmd and obgyn within 2 days, return to the ER for any new or worsening signs or symptos. - PA / [employer]ER / Resident Statement MD/DO has reviewed & agrees with the documentation as recorded. Disposition/Present on Arrival - Present on Arrival Any Indicators Present on Arrival: No History of DVT/PE: No History of Uncontrolled Diabetes: No Urinary Catheter: No History of Decub. Ulcer: No History Surgical Site Infection Following: None - Disposition Have Diagnosis and Disposition been Completed?: Yes Diagnosis: General medical exam Disposition: HOME/ ROUTINE Disposition Time: 20:28 Patient Plan: Discharge Patient Problems: Current Active Problems Problem Status Onset General medical exam Acute Condition: GOOD Additional Instructions: -Discharge home with education on follow up with your own pmd and obgyn within 2 days, return to the ER for any new or worsening signs or symptos. Referrals: Bunny Kerr MD [Staff Provider] - Follow up with primary [facility] at [facility] [place] [Outside] - Follow up with primary Forms: [employer] NOTE
[2018-08-02 19:21] VITALS: BMI 37.1
[2018-08-02 19:35] VITALS: TEMP 98.7
[2018-08-02 20:09] LABS: PH,URINE 6.5 (4.7-8.0); URINE BILIRUBIN NEGATIVE (NEGATIVE); URINE BLOOD NEGATIVE (NEGATIVE); URINE COLOR COLORLESS (YELLOW); URINE GLUCOSE (UA) NEGATIVE (NEGATIVE); URINE LEUKOCYTE ESTERASE NEGATIVE Leu/uL (NEGATIVE); URINE PROTEIN NEGATIVE mg/dL (<30 mg/dL); URINE UROBILINOGEN 0.2 E.U./dL (<1 E.U./dL)
[2018-08-02 20:10] LABS: URINE APPEARANCE CLEAR (CLEAR)
[2018-08-02 20:34] VITALS: BP 134/78; PULSE 84; RESP 17; O2SAT 98
== END 2018-08-02 20:30 | disposition home or self-care (01) ==
LOC: ED 19:15
DX: Z00.00 Encounter for general adult medical examination without abnormal findings (principal)